=== PATIENT | female | born 1955 | race Caucasian/White ===

== ENCOUNTER 2017-12-17 06:58 | Day surgery (SDC) | payer OTHER ==
[2017-12-14 11:21] VITALS: BMI 24.9
[2017-12-17 08:04] VITALS: BP 130/90; TEMP 97.2
--- NOTE | 2017-12-17 10:01 | RAD ---
LUMBAR MYELOGRMA: History Cervical and lumbar disk degeneration. COMPARISON: 08/03/16. EXPOSURE: 1.6 minutes. 648 mGy*^m2. FINDINGS: Initial lumbar spine and cervical spine customer care assistant radiographs demonstrate extensive fusion changes throug hout the cervical and lumbar spine. There are bilateral transpedicular screws at L2, L3, L4, and L5. Disk prosthesis at L3-L4 and L4-L5. With regard to the fusion hardware, no perihardware lucency. There is vacuum disk phenomenon at the L1-L2 level. With regard to the cervical spine, there is an anterior fusion plate with transvertebral body screw a t C4, C5, C6, and C7. No evidence of hardware lucency. There is anterolisthesis of C3 upon C4. Successful lumbar puncture for intrathecal contrast administration. A total of 9 cc of Isovue-M 300 contrast was administered intrathecally. The patient tolerated the procedure well. No immediate or postprocedure complications. TECHNIQUE: Consent was obtained to perform a lumbar puncture for intrathecal contrast administration. The patie nt's back was evaluated. The L2-L3 level is deemed appropriate. The skin was prepped and draped in sterile fashion. 1% Lidocaine, buffered with sodium bicarbonate, was used for local anesthesia. Und er ultrasound guidance, a 22-gauge spinal needle was advanced into the CSF space. The inner stylette was removed. There is prompt flow of clear CSF into the hub of the needle. Via a short tubing cath eter, a total of 9 cc of Isovue 300-M contrast was administered intrathecally. The patient tolerated the procedure well. No immediate postprocedure complications. IMPRESSION: Successful cervical and lumbar spine myelogram. Please refer to myelogram CT for further details. POS: [facility]
--- NOTE | 2017-12-17 10:30 | CT ---
CERVICAL SPINE CT POST MYELOGRAM: HISTORY: Cervical disk degeneration. COMPARISON: None. TECHNIQUE: Post myelogram cervical spine CT is performed in the axial plane. Reformatted images are submitted. FINDINGS: There is an anterior fusion plate with transvertebral body screw at C4, C5, C6, and C7. No perihardw are lucency. There is a paucity of the C4-C5, C5, and C6 disk spaces. There is 2.6 mm anterolisthes is of C3 upon C4. Cervical spine vertebral body heights are maintained. There is no fracture. There is no craniocervical dissociation. Lateral masses of C1 and C2 as well as the facets have appr opriate articulation. Visualized soft tissue neck structures are unremarkable. Upper mediastinum and lung apices are gross ly unremarkable. Minimal ground-glass opacities in the left upper lobe. C2-C3: No significant disk-osteophyte complex. No significant central canal stenosis. Neural pam noe are patent. C3-C4: Central disk-osteophyte complex abuts the thecal sac. Ventral contrast is still present. Mi ld central canal stenosis. Neural foramen are patent bilaterally. C4-C5: Broad-based osteophyte ridge effaces the ventral subarachnoid space. There is deformity of t he ventral cord. Mild central canal stenosis. Neural foramen are patent bilaterally. C5-C6: There is a broad-based disk-osteophyte ridge that abuts the thecal sac. There is a small rig ht paracentral component. Minimal deformity of the cervical cord. Mild central canal stenosis. Deg enerative change of bilateral uncovertebral joints results in mild bilateral foraminal narrowing. C6-C7: Broad-based disk-osteophyte ridge abuts the thecal sac. No significant central canal stenosi s. Neural foramina are patent. Minimal left foraminal narrowing. C7-T1: No significant disk-osteophyte complex. No significant central canal stenosis. Neural pam en are patent. T1-T2: There are minimal left and right paracentral disk bulges. No significant central canal steno sis. Neural foramen are patent. T2-T3: No significant central canal stenosis or foraminal narrowing. T3-T4: There appears to be effacement of the right aspect of the thecal sac, incompletely evaluated. IMPRESSION: Post fusion changes of the cervical spine as above. No high-grade central canal stenosis or high-gra de neural foraminal narrowing. POS: [facility]
--- NOTE | 2017-12-17 11:01 | CT ---
POST MYELOGRAM LUMBAR SPINE CT: COMPARISON: 08/03/16. TECHNIQUE: Post myelogram lumbar spine CT is performed in the axial plane. Reformatted images are submitted. HISTORY: Lumbar disk degeneration. FINDINGS: The visualized solid organs have appropriate attenuation. Symmetric attenuation of the psoas muscles . Visualized retroperitoneal structures are unremarkable. There are 5 lumbar-type vertebral bodies. Lumbar spine vertebral body height is maintained. There i s no fracture. Stable end plate sclerosis and vacuum-disk phenomenon at the L1-L2 level. Stable lum bar fusion hardware with bilateral transpedicular screws at L2, L3, L4, and L5. Posterior element billy ne graft material is noted. Stable vertical fusion rods. Conus medullaris terminates at the T12-L1 disk space level. There is 1.9 mm of anterolisthesis of L1 upon L2, 1.8 mm retrolisthesis of L2 upon L3, 3.4 mm anterol isthesis of L4 upon L5. T11-T12 and T12-L1: No significant central canal stenosis or neural foraminal narrowing. L1-L2: Vacuum disk phenomenon. Broad-based disk bulge with a left superior disk extrusion. Mild ce ntral canal stenosis. Mild bilateral neural foraminal narrowing. When compared to the previous exam ination, the degree of central canal stenosis and neural foraminal narrowing has not changed. L2-L3: There is a posterior laminectomy defect. There is severe loss of disk space height. No high -grade central canal stenosis. Mild bilateral neural foraminal narrowing. L3-L4: There is a disk prosthesis. Posterior decompression changes are noted. No high-grade centra l canal stenosis or high-grade foraminal narrowing. L4-L5: Disk prosthesis. Posterior decompression changes are noted. No high-grade central canal юлия nosis or high-grade neural foraminal narrowing. L5-S1: No significant posterior disk abnormality. No significant central canal stenosis. Neural fo ramen are patent. There are stable osteoarthritic changes of the S! joints. IMPRESSION: 1. Extensive postsurgical changes of the lumbar spine as above. There is no high-grade central caesar l stenosis or high-grade foraminal narrowing. 2. Stable vacuum disk phenomenon at L1-L2. Stable foraminal narrowing. POS: [facility]
== END 2017-12-17 10:15 | disposition home or self-care (01) ==
LOC: RAD 06:58
PROVIDERS: ATTEND Neurological Surgery
PROC: B02B1ZZ Computerized Tomography (CT Scan) of Spinal Cord using Low Osmolar Contrast (ICD-10-PCS; principal; 2017-12-17)
DX: M50.30 Other cervical disc degeneration, unspecified cervical region (principal); M47.16 Other spondylosis with myelopathy, lumbar region; M47.26 Other spondylosis with radiculopathy, lumbar region; M51.06 Intervertebral disc disorders with myelopathy, lumbar region; M51.16 Intervertebral disc disorders with radiculopathy, lumbar region; G62.9 Polyneuropathy, unspecified; I10 Essential (primary) hypertension; M19.90 Unspecified osteoarthritis, unspecified site; M79.7 Fibromyalgia; F32.9 Major depressive disorder, single episode, unspecified; E55.9 Vitamin D deficiency, unspecified; E03.9 Hypothyroidism, unspecified; Z79.899 Other long term (current) drug therapy; Z88.0 Allergy status to penicillin; Z88.2 Allergy status to sulfonamides; Z88.8 Allergy status to other drugs, medicaments and biological substances; Z98.1 Arthrodesis status; Z98.890 Other specified postprocedural states
CPT/HCPCS: 62305; 72126; 72132